=== PATIENT | female | born 1990 | race Caucasian/White ===

== ENCOUNTER 2022-02-23 17:42 | Emergency (ER) | payer OTHER ==
[~2022-02-23] VITALS: Ht 170.2 cm; Wt 54.4 kg
--- NOTE | 2022-02-23 18:09 | NUR ---
BIBS C/O VOMITING STARTED TODAY "MY HANDS BEEN FEELING TINGLY FOR 3DAYS". THE PATIENT IS ALERT AND ORIENTED X4. IN ROOM AIR AND DENIES SOB. RESPIRATION REGULAR AND UNLABORED. WILL CONTINUE TO MONITOR THE PATIENT.
--- NOTE | 2022-02-23 18:10 | NUR ---
URINE COLLECTED AND SENT TO LAB
[2022-02-23] MEDS ORDERED: ONDANSETRON HCL/PF 4 MG/2 ML VIAL IVP ONE (18:30)
[2022-02-23] MEDS ORDERED: IV NS 0.9% 1,000 ML BAG IV ONE (18:30)
[2022-02-23] MEDS ORDERED: ONDANSETRON HCL/PF 4 MG/2 ML VIAL ONE (18:38)
[2022-02-23 18:44] LABS: BILIRUBIN,URINE NEGATIVE (NEGATIVE); COLOR,URINE YELLOW (YELLOW); LEUKOCYTE ESTERASE ,URINE TRACE (NEGATIVE); NITRITE, URINE NEGATIVE (NEGATIVE); PROTEIN,URINE NEGATIVE (NEGATIVE); UGLUCOSE NEGATIVE (NEGATIVE); UROBILINOGEN,URINE 0.2 EU/dL (0.2)
--- NOTE | 2022-02-23 18:44 | NUR ---
IV ESTABLIHSED L AC 20G. LABS DRAWN AND COLLECTED AT BEDSIDE
--- NOTE | 2022-02-23 18:50 | NUR ---
ADDENDUM: Intravenous End Time Documentation: Normal saline 1 liter (IV-WO) : start time: 1850 pm; end time:1949pm : IV site: LAC PIV # 20 Port # 1
[2022-02-23 19:03] LABS: BACTERIA,URINE RARE /HPF (None Seen); RBC,URINE 0-2 /HPF (0-2); SQUAMOUS EPITHELIAL CELL,UR 0-2 /HPF (None Seen)
[2022-02-23 19:18] LABS: CALCIUM, SERUM 9.2 mg/dL (8.5-10.1); CREATININE 0.8 mg/dL (0.6-1.3); POTASSIUM 3.4 mmol/L (3.5-5.1)
[2022-02-23 19:23] LABS: ALBUMIN 4.3 g/dL (3.4-5.0); BILIRUBIN,DIRECT 0.1 mg/dL (0.0-0.2); BILIRUBIN,TOTAL 0.3 mg/dL (0.2-1.0); TOTAL PROTEIN, SERUM 7.7 g/dL (6.4-8.2)
[2022-02-23 20:01] LABS: BASOPHILS % (AUTO) 0.4 % (0.0-2.0); EOSINOPHILS % (AUTO) 0.4 % (0.0-6.0); HEMATOCRIT 40 % (33-45); HEMOGLOBIN 13.6 g/dL (11.5-14.8); LYMPHOCYTES # (AUTO) 2.7 K/uL (0.8-4.8); LYMPHOCYTES % (AUTO) 27.9 % (20.0-44.0); MEAN CORPUSCULAR HGB CONC 34 g/dl (31.0-36.0); MEAN CORPUSCULAR VOLUME 90 fL (82-100); MONOCYTES # (AUTO) 0.7 K/uL (0.1-1.30); MONOCYTES % (AUTO) 7.4 % (2.0-12.0); NEUTROPHILS # (AUTO) 6.2 K/uL (1.8-8.9); NEUTROPHILS % (AUTO) 63.9 % (43.0-81.0); PLATELET COUNT (AUTO) 273 K/uL (150-450); RED BLOOD CELL COUNT(AUTO) 4.41 MIL/uL (4.0-5.2); WHITE BLOOD COUNT (AUTO) 9.8 K/uL (4.3-11.0)
[2022-02-23] MEDS ORDERED: ONDA4TAB5 PO (20:09)
--- NOTE | 2022-02-23 20:39 | NUR ---
Patient discharged to home in stable condition. Written and verbal after care instructions given. Patient verbalizes understanding of instruction. IV line removed and PT ambulatory with steady gait.
[2022-02-23 20:45] VITALS: BP 121/67
== END 2022-02-23 20:45 | disposition home or self-care (01) ==
LOC: ER 17:48
DX: R11.2 Nausea with vomiting, unspecified (principal); E86.0 Dehydration; E87.6 Hypokalemia; F41.9 Anxiety disorder, unspecified; R51.9 Headache, unspecified; Z79.899 Other long term (current) drug therapy
CPT/HCPCS: 36415; 80048; 80076; 81001; 83690; 84702; 84703; 85025; 96361; 96374; 99283; J2405; J7030